=== PATIENT | female | born 1985 | race Caucasian/White ===

== ENCOUNTER 2016-09-05 08:38 | Emergency (ER) | payer BC ==
[2016-09-05 08:58] VITALS: TEMP 98.6
--- NOTE | 2016-09-05 09:19 | ED.PDOC ---
History of Present Illness - General Chief Complaint: Upper Extremity Injury Stated Complaint: right shoulder injury Time Seen by Provider: 09/05/16 09:05 Source: patient Exam Limitations: no limitations - History of Present Illness Initial Comments: Patient presents with right biceps pain after having a seizure 3 days ago. She has seizure disorder and takes three medications. She said she fell foreward with her right arm outstretched. Pain is located at the origin of the biceps and radiates distally down the belly of the muscle. There is also pain in the AC joint. Pain is constant but worse with elevation of the right arm and stretching of the bicep in any direction. No previous episodes. Timing/Duration: other - three days Severity: moderate Improving Factors: rest Worsening Factors: movement Associated Symptoms: denies symptoms Allergies/Adverse Reactions: Allergies NO KNOWN ALLERGY Allergy (Verified 08/17/15 08:27) Home Medications: Ambulatory Orders Lamotrigine 200 mg PO BID 09/05/16 Levetiracetam 500 mg PO BID 09/05/16 Topiramate 50 mg PO BID 09/05/16 Review of Systems - Review of Systems Constitutional: States: no symptoms reported EENTM: States: no symptoms reported Respiratory: States: no symptoms reported Cardiology: States: no symptoms reported Gastrointestinal/Abdominal: States: no symptoms reported Genitourinary: States: no symptoms reported Musculoskeletal: States: see HPI Skin: States: no symptoms reported Neurological: States: no symptoms reported Endocrine: States: no symptoms reported Hematologic/Lymphatic: States: no symptoms reported Past Medical History (General) - Patient Medical History Hx Seizures: Yes Hx Asthma: No Surgical History: no surgical history - Vaccination History Hx Influenza Vaccination: No - Social History Hx Tobacco Use: No Hx Alcohol Use: No Hx Substance Use: No Hx Substance Use Treatment: No Hx Depression: No - Female History Patient is a Female of Child Bearing Age (10 -59 yrs old): Yes Family Medical History - Family History Mother Family History: No Known Physical Exam - Physical Exam General Appearance: Alert Respiratory: lungs clear Cardiovascular/Chest: regular rate, rhythm Gastrointestinal/Abdominal: normal bowel sounds, non tender, soft Extremity: other - Pain is worse with extension of the right arm as well as elevation. TTP over right AC joint and origin of the bicep. Negative "beer can " sign. 5/5 strength to flexion and extension of the right arm and 4/5 strength to elevation. Progress - Progress Progress: 09/05/16 09:43 Shoulder radiographs showed no fracture, bony abnormalities, nor dislocations. 09/05/16 09:48 MARYSE wrap applied to right bicep. Right arm sling supplied. 09/05/16 09:49 09/05/16 09:56 Departure - Departure Clinical Impression: Sprain, bicep Disposition: Discharge to Home or Self Care Condition: Good Departure Forms: ED Discharge - Pt. Copy, Patient Portal Self Enrollment Diet: resume usual diet Activity: increase activity as tolerated Prescriptions: Cyclobenzaprine HCl [Flexeril] 10 mg PO TID #10 tab Home Medications: Ambulatory Orders Lamotrigine 200 mg PO BID 09/05/16 Levetiracetam 500 mg PO BID 09/05/16 Topiramate 50 mg PO BID 09/05/16
--- NOTE | 2016-09-05 09:25 | RAD ---
Two-view right shoulder. Indication: SHOULDER INJURY Comparison: None. Impression: Before meals and glenohumeral joint alignment is normal without fracture, dislocation, or advanced osteoarthritis. Electronically signed by: Abran Maloney MD 09/05/2016 9:23 AM CDT
[2016-09-05 10:26] VITALS: BP 106/54; O2SAT 98
== END 2016-09-05 10:15 | disposition home or self-care (01) ==
LOC: ER 08:38
DX: S43.491A Other sprain of right shoulder joint, initial encounter (principal); G40.909 Epilepsy, unspecified, not intractable, without status epilepticus; X58.XXXA Exposure to other specified factors, initial encounter; Z79.899 Other long term (current) drug therapy

== ENCOUNTER → 2020-03-22 | Outpatient (CLI) | payer BC | LOC: YCFC.O 11:37 | PROVIDERS: ATTEND Family Medicine | DX: Z20.828 Contact with and (suspected) exposure to other viral communicable diseases (principal) ==

== ENCOUNTER → 2020-06-26 | Outpatient (CLI) | payer BC | LOC: YCFC.O 11:34 | PROVIDERS: ATTEND Family Medicine | DX: Z20.828 Contact with and (suspected) exposure to other viral communicable diseases (principal); Z11.59 Encounter for screening for other viral diseases ==